=== PATIENT | female | born 1965 | race Two or more races ===

== ENCOUNTER 2017-09-20 11:28 | Emergency (ER) | payer OTHER ==
[~2017-09-20] VITALS: Ht 160 cm; Wt 104.3 kg
[~2017-09-20 11:28] MED LIST: COZAAR50 MG; DOLOGESIC CAPSU1 CAP PO; ENALAPRIL MALEA10 MG; IRON1TAB4 PO; ORPH100T PO; RAYOS5 MG; ULTRAM50 MG PO; VISTARIL25 MG PO
== END 2017-09-20 12:59 | disposition home or self-care (01) ==
LOC: ER 11:28
DX: K08.89 Other specified disorders of teeth and supporting structures (principal)

== ENCOUNTER 2017-09-25 13:53 | Emergency (ER) | payer OTHER ==
[~2017-09-25] VITALS: Ht 160 cm; Wt 104.3 kg
[2017-09-25] MEDS ORDERED: KETO10TA2 PO (16:19)
[2017-09-25] MEDS ORDERED: VISTARIL25 MG PO (16:19)
== END 2017-09-25 16:41 | disposition home or self-care (01) ==
LOC: ER 13:53
DX: M54.2 Cervicalgia (principal)